=== PATIENT | female | born 1990 | race Caucasian/White ===

== ENCOUNTER → 2022-07-22 | Emergency (ER) | payer OTHER ==
[~2022-07-22] VITALS: Ht 152.4 cm; Wt 68.0 kg
[~2022-07-22] MED LIST: ACTIGALL300 MG PO; KETO10TA2 PO; NAPROXEN SODIU550 M1 PO; PRENATAL TABLE1 EAC1 PO; PREPLUS CA-FE1 EACH PO
== END | disposition home or self-care (01) ==
LOC: ER 09:07
DX: S92.351A Displaced fracture of fifth metatarsal bone, right foot, initial encounter for closed fracture (principal); S90.31XA Contusion of right foot, initial encounter; S90.01XA Contusion of right ankle, initial encounter; W18.30XA Fall on same level, unspecified, initial encounter; Y93.9 Activity, unspecified; Y92.89 Other specified places as the place of occurrence of the external cause; Y99.9 Unspecified external cause status; Z88.0 Allergy status to penicillin; Z91.018 Allergy to other foods